=== PATIENT | female | born 1955 | race Hispanic/Latino ===

== ENCOUNTER 2021-12-03 22:51 | Inpatient (IN) | payer MEDICARE, MEDICAID ==
[2021-12-03] MEDS ORDERED: SODIUM CHLORIDE 0.9% 1000 ML 1,000 ML IV ONE (23:30)
[2021-12-03] MEDS ORDERED: NALOXONE 0.4 MG/1 ML INJ IV ONE (23:30)
--- NOTE | 2021-12-04 00:18 | XRay Report ---
Chest single view INDICATION: Dyspnea IMPRESSION: Patchy airspace disease within both lower lungs could represent pneumonia. The upper lung s are grossly clear. Signer Name: Dameon Pickens MD Signed: 12/04/2021 12:14 AM Workstation Name: [employer]
[2021-12-04 01:07] LABS: Basophils % (Auto) 0.1 % (0.0-1.8); Hematocrit 32.3 % (30.3-42.9); Hemoglobin 10.2 gm/dl (10.1-14.3); Lymphocytes # (Auto) 1.3 K/mm3 (1.2-5.4); Lymphocytes % (Auto) 23.3 % (13.4-35.0); Mean Corpuscular HGB Conc 32 % (30-34); Mean Corpuscular Volume 82 fl (79-97); Monocytes # (Auto) 0.7 K/mm3 (0.0-0.8); Monocytes % (Auto) 11.9 % (0.0-7.3); Platelet Count 157 K/mm3 (140-440); Red Blood Count 3.92 M/mm3 (3.65-5.03); Red Cell Distribution Width 15.4 % (13.2-15.2)
[2021-12-04 01:10] LABS: INR 0.92 (0.87-1.13)
[2021-12-04] MEDS ORDERED: cefTRIAXone/NS 1 GM/50 ML 1 GM/50 ML BAG IV ONE (01:15)
[2021-12-04 01:19] LABS: Alanine Aminotransferase 24 units/L (7-56); Albumin 3.9 g/dL (3.9-5); BUN/Creatinine Ratio 34; Blood Urea Nitrogen 37 mg/dL (7-17); Calcium 9.1 mg/dL (8.4-10.2); Hemolysis Index 33
[2021-12-04 02:45] LABS: Color,Urine Yellow (Yellow)
[2021-12-04 02:47] LABS: Hyaline Casts,Urine 7 /LPF; Mucus,Urine FEW /HPF
[2021-12-04 02:51] LABS: Amphetamine Screen,Urine Negative; Cannabinoid Screen,Urine Negative; Cocaine Screen,Urine Negative
[2021-12-04 03:06] LABS: Benzodiazepines Screen,Urine Positive; Methadone Screen,Urine Positive; Opiate Screen,Urine Positive
--- NOTE | 2021-12-04 04:14 | Emergency Department Report ---
ED General Adult HPI - General Chief complaint: Overdose Stated complaint: AMS PUI?: No Time Seen by Provider: 12/03/21 23:30 Source: patient, EMS Mode of arrival: Stretcher Limitations: No Limitations - History of Present Illness Initial comments: From detention. Staff stated that pt has been acting strange X 2 days. Today was found in bathroom with Benadryl pills around her. Stated that she took five but time unknown. Accucheck 149. -: days(s) Severity scale (0 -10): 0 Worsens with: none Associated Symptoms: denies: denies other symptoms, confusion, chest pain Treatments Prior to Arrival: none - Related Data Allergies Allergy/AdvReac Type Severity Reaction Status Date / Time No Known Allergies Allergy Unverified 12/03/21 23:30 ED Review of Systems ROS: Stated complaint: AMS Other details as noted in HPI Constitutional: denies: chills, fever Eyes: denies: eye pain, eye discharge, vision change ENT: denies: ear pain, throat pain Respiratory: denies: cough, shortness of breath, wheezing Cardiovascular: denies: chest pain, palpitations Endocrine: no symptoms reported Gastrointestinal: denies: abdominal pain, nausea, diarrhea Genitourinary: denies: urgency, dysuria, discharge Musculoskeletal: denies: back pain, joint swelling, arthralgia Skin: denies: rash, lesions Neurological: denies: headache, weakness, paresthesias Psychiatric: denies: anxiety, depression Hematological/Lymphatic: denies: easy bleeding, easy bruising ED Past Medical Hx - Past Medical History Previous Medical History?: Yes Hx Hypertension: No Hx Psychiatric Treatment: Yes (Schizophrenia, Bipolar) Hx COPD: Yes Additional medical history: Sustance Abuser - Surgical History Past Surgical History?: No - Social History Smoking Status: Unknown if ever smoked ED Physical Exam - General Limitations: No Limitations General appearance: in no apparent distress, other (drowsy sleepy slurred ) - Head Head exam: Present: atraumatic, normocephalic - Eye Eye exam: Present: normal appearance, PERRL - ENT ENT exam: Present: mucous membranes moist - Neck Neck exam: Present: normal inspection - Respiratory Respiratory exam: Present: normal lung sounds bilaterally. Absent: respiratory distress - Cardiovascular Cardiovascular Exam: Present: regular rate, normal rhythm. Absent: systolic murmur, diastolic murmur, rubs, gallop - GI/Abdominal GI/Abdominal exam: Present: soft, normal bowel sounds - Extremities Exam Extremities exam: Present: normal inspection - Back Exam Back exam: Present: normal inspection - Neurological Exam Neurological exam: Present: alert, oriented X3 - Expanded Neurological Exam Expanded Neurological exam: Present: innattentive Patient oriented to: Present: place Speech: Present: fluid speech Best Eye Response (Fish): (4) open spontaneously Best Motor Response (Fish): (6) obeys commands Best Verbal Response (Fish): (3) inappropriate words [place] Total: 13 - Expanded Psychiatric Exam Expanded Focused psych exam: Present: perseverating, loose associations - Skin Skin exam: Present: warm, dry, intact, normal color. Absent: rash ED Course Vital Signs 12/03/21 12/03/21 12/03/21 22:51 23:30 23:35 Temperature 98 F 98.2 F Pulse Rate 94 H 84 81 Respiratory 18 20 21 Rate Blood Pressure 152/61 Blood Pressure 134/49 [Left] O2 Sat by Pulse 96 96 93 Oximetry 12/03/21 12/04/21 12/04/21 23:46 00:00 00:16 Temperature Pulse Rate 83 79 Respiratory 20 21 Rate Blood Pressure 132/48 132/48 132/48 Blood Pressure [Left] O2 Sat by Pulse 92 96 93 Oximetry 12/04/21 12/04/21 12/04/21 00:30 00:46 01:00 Temperature Pulse Rate 82 80 86 Respiratory 19 23 16 Rate Blood Pressure 117/33 117/33 117/33 Blood Pressure [Left] O2 Sat by Pulse 93 Oximetry 12/04/21 12/04/21 12/04/21 01:16 01:30 01:46 Temperature Pulse Rate 79 80 78 Respiratory 19 21 20 Rate Blood Pressure 142/54 142/54 146/60 Blood Pressure [Left] O2 Sat by Pulse Oximetry 12/04/21 12/04/21 12/04/21 02:00 02:16 02:30 Temperature Pulse Rate 78 79 80 Respiratory 21 13 12 Rate Blood Pressure 142/54 142/54 146/60 Blood Pressure [Left] O2 Sat by Pulse Oximetry 12/04/21 12/04/21 12/04/21 02:58 03:00 03:16 Temperature Pulse Rate 89 76 Respiratory 18 15 Rate Blood Pressure 142/54 195/57 195/57 Blood Pressure [Left] O2 Sat by Pulse 92 96 97 Oximetry 12/04/21 12/04/21 12/04/21 03:30 03:46 04:00 Temperature Pulse Rate 77 Respiratory 19 Rate Blood Pressure 146/60 146/60 111/42 Blood Pressure [Left] O2 Sat by Pulse 98 94 Oximetry ED Medical Decision Making - Lab Data Result diagrams: 12/04/21 00:17 12/04/21 00:17 - Radiology Data Radiology results: report reviewed, image reviewed - Medical Decision Making work up showed methadone opioids and benzo, pt was observed back to her [facility] , Critical care attestation.: If time is entered above; I have spent that time in minutes in the direct care of this critically ill patient, excluding procedure time. ED Disposition Clinical Impression: Altered mental status, Methadone use, UTI (urinary tract infection) Disposition: 01 HOME / SELF CARE / HOMELESS Is pt being admited?: No Does the pt Need Aspirin: No Condition: Stable Instructions: Opioid Use Disorder, Warning Signs of Opioid Misuse Referrals: VALORIE VANEGAS MD [Primary Care Provider] - 3-5 Days
--- NOTE | 2021-12-04 04:20 | Cat Scan Report ---
CT head without contrast INDICATION : Altered mental status TECHNIQUE: Axial imaging performed from the skull apex through the skull base without the use of con trast. All CT examinations performed at this facility utilize dose modulation, iterative reconstruct ion or weight-based dosing, when appropriate, to reduce radiation dose to as low as reasonably achiev able. Exam was limited secondary to motion artifact. Several repeat images performed COMPARISON: None FINDINGS: No acute intracranial hemorrhage or parenchymal abnormality. Tiny lacunar infarct noted wi thin the left basal ganglia. Ventricles are normal in size and appear symmetric. Soft tissues inclu ding the orbits appear normal. No acute osseous abnormality. Sinuses and mastoid air cells are cl ear. IMPRESSION: Limited exam. No acute abnormality within the limits of the exam. Signer Name: Dameon Pickens MD Signed: 12/04/2021 4:15 AM Workstation Name: [email or web address]
[2021-12-04] MEDS ORDERED: MORPHINE 4 MG/1 ML INJ IV PRN (07:57)
[2021-12-04] MEDS ORDERED: ONDANSETRON 4 MG/2 ML INJ IV PRN (07:57)
[2021-12-04] MEDS ORDERED: ACETAMINOPHEN 325 MG TAB PO PRN (07:57)
[2021-12-04] MEDS ORDERED: oxyCODONE /ACETAMINOPHEN 5-325MG TAB PO PRN (07:57)
--- NOTE | 2021-12-04 08:14 | Event Note ---
Date: 12/04/21 Patient is a 66-year-old female with toxic metabolic encephalopathy, likely secondary to methadone overdose as well as pyuria/possible UTI. CT scan brain negative for acute findings. Patient disorganize confused, and is not able to care for self independently. She is lethargic. She is protecting her airway. She is not hypoxic. Recommend admission for observation and supportive care for toxic metabolic encephalopathy. Nursing team called [facility] Control [facility], recommendations are as follows EKG is interpreted at 06: 20 1 AM. Sinus rhythm, rate of 68 bpm. Normal axis, normal P wave axis, QTC 4 9 4 ms, with high left ventricular voltage/LVH. Poor R wave progression. Abnormal EKG. Not a STEMI. Hospital physician, Dr. Radha Das to admit Chest x-ray suggestive of possible pneumonia versus aspiration. Ceftriaxone has been ordered , her recommendations were systematic and supportive care because she's been here for over 6 hours and vitals and EKG is normal Original Note: called poison control @[facility] spoke with Loretta Gutierrez CT head without contrast INDICATION : Altered mental status TECHNIQUE: Axial imaging performed from the skull apex through the skull base without the use of contrast. All CT examinations performed at this facility utilize dose modulation, iterative reconstruction or weight-based dosing, when appropriate, to reduce radiation dose to as low as reasonably achievable. Exam was limited secondary to motion artifact. Several repeat images performed COMPARISON: None FINDINGS: No acute intracranial hemorrhage or parenchymal abnormality. Tiny lacunar infarct noted within the left basal ganglia. Ventricles are normal in size and appear symmetric. Soft tissues including the orbits appear normal. No acute osseous abnormality. Sinuses and mastoid air cells are clear. IMPRESSION: Limited exam. No acute abnormality within the limits of the exam. Signer Name: Dameon Pickens MD Signed: 12/04/2021 3:15 AM Workstation Name: [employer] Chest single view INDICATION: Dyspnea IMPRESSION: Patchy airspace disease within both lower lungs could represent pneumonia. The upper lungs are grossly clear. Signer Name: Dameon Pickens MD Signed: 12/03/2021 11:14 PM Workstation Name: [employer] Vital Signs 12/03/21 12/03/21 12/03/21 22:51 23:30 23:35 Temperature 98 F 98.2 F Pulse Rate 94 H 84 81 Respiratory 18 20 21 Rate Blood Pressure 152/61 Blood Pressure 134/49 [Left] O2 Sat by Pulse 96 96 93 Oximetry 12/03/21 12/04/21 12/04/21 23:46 00:00 00:16 Temperature Pulse Rate 83 79 Respiratory 20 21 Rate Blood Pressure 132/48 132/48 132/48 Blood Pressure [Left] O2 Sat by Pulse 92 96 93 Oximetry 12/04/21 12/04/21 12/04/21 00:30 00:46 01:00 Temperature Pulse Rate 82 80 86 Respiratory 19 23 16 Rate Blood Pressure 117/33 117/33 117/33 Blood Pressure [Left] O2 Sat by Pulse 93 Oximetry 12/04/21 12/04/21 12/04/21 01:16 01:30 01:46 Temperature Pulse Rate 79 80 78 Respiratory 19 21 20 Rate Blood Pressure 142/54 142/54 146/60 Blood Pressure [Left] O2 Sat by Pulse Oximetry 12/04/21 12/04/21 12/04/21 02:00 02:16 02:30 Temperature Pulse Rate 78 79 80 Respiratory 21 13 12 Rate Blood Pressure 142/54 142/54 146/60 Blood Pressure [Left] O2 Sat by Pulse Oximetry 12/04/21 12/04/21 12/04/21 02:58 03:00 03:16 Temperature Pulse Rate 89 76 Respiratory 18 15 Rate Blood Pressure 142/54 195/57 195/57 Blood Pressure [Left] O2 Sat by Pulse 92 96 97 Oximetry 12/04/21 12/04/21 12/04/21 03:30 03:46 04:00 Temperature Pulse Rate 77 Respiratory 19 Rate Blood Pressure 146/60 146/60 111/42 Blood Pressure [Left] O2 Sat by Pulse 98 94 Oximetry Lab Results 12/04/21 12/04/21 12/04/21 Range/Units 00:17 00:17 00:17 WBC 5.6 (4.5-11.0) K/mm3 RBC 3.92 (3.65-5.03) M/mm3 Hgb 10.2 (10.1-14.3) gm/dl Hct 32.3 (30.3-42.9) % MCV 82 (79-97) fl MCH 26 L (28-32) pg MCHC 32 (30-34) % RDW 15.4 H (13.2-15.2) % Plt Count 157 (140-440) K/mm3 Lymph % (Auto) 23.3 (13.4-35.0) % [place] % (Auto) 11.9 H (0.0-7.3) % Eos % (Auto) 0.0 (0.0-4.3) % Baso % (Auto) 0.1 (0.0-1.8) % Lymph # (Auto) 1.3 (1.2-5.4) K/mm3 [place] # (Auto) 0.7 (0.0-0.8) K/mm3 Eos # (Auto) 0.0 (0.0-0.4) K/mm3 Baso # (Auto) 0.0 (0.0-0.1) K/mm3 Seg Neutrophils % 64.7 (40.0-70.0) % Seg Neutrophils # 3.6 (1.8-7.7) K/mm3 PT 13.4 (12.2-14.9) Sec. INR 0.92 (0.87-1.13) Sodium 141 (137-145) mmol/L Potassium 4.5 (3.6-5.0) mmol/L Chloride 104.6 (98-107) mmol/L Carbon Dioxide 23 (22-30) mmol/L Anion Gap 18 mmol/L BUN 37 H (7-17) mg/dL Creatinine 1.1 (0.6-1.2) mg/dL Estimated GFR 49 ml/min BUN/Creatinine Ratio 34 % Glucose 93 (65-100) mg/dL Lactic Acid (0.7-2.0) mmol/L Calcium 9.1 (8.4-10.2) mg/dL Total Bilirubin 0.30 (0.1-1.2) mg/dL AST 50 H (5-40) units/L ALT 24 (7-56) units/L Alkaline Phosphatase 100 (35-129) units/L Total Creatine Kinase 959 H (30-135) units/L Troponin T < 0.010 (0.00-0.029) ng/mL Total Protein 7.2 (6.3-8.2) g/dL Albumin 3.9 (3.9-5) g/dL Albumin/Globulin Ratio 1.2 % Urine Color (Yellow) Urine Turbidity (Clear) Specific [place] (Man) (1.003-1.030) Ur Protein (Man) (Negative) mg/dL Ur Ketones (Man) (Negative) Ur Nitrite (Man) (Negative) Urine Bilirubin (Man) (Negative) Leukocyte Esterase (Man) (Negative) Urine WBC (Auto) (0.0-6.0) /HPF Urine RBC (Auto) (0.0-6.0) /HPF U Epithel Cells (Auto) (0-13.0) /HPF Urine RBC (Manual) (Negative) Hyaline Casts /LPF Urine Mucus /HPF Salicylates (2.8-20.0) mg/dL Urine Opiates Screen Urine Methadone Screen Acetaminophen (10.0-30.0) ug/mL Ur Barbiturates Screen Ur Phencyclidine Scrn Ur Amphetamines Screen U Benzodiazepines Scrn Urine Cocaine Screen U Marijuana (THC) Screen Drugs of Abuse Note Plasma/Serum Alcohol (0-0.07) % 12/04/21 12/04/21 12/04/21 Range/Units 00:17 00:17 00:17 WBC (4.5-11.0) K/mm3 RBC (3.65-5.03) M/mm3 Hgb (10.1-14.3) gm/dl Hct (30.3-42.9) % MCV (79-97) fl MCH (28-32) pg MCHC (30-34) % RDW (13.2-15.2) % Plt Count (140-440) K/mm3 Lymph % (Auto) (13.4-35.0) % [place] % (Auto) (0.0-7.3) % Eos % (Auto) (0.0-4.3) % Baso % (Auto) (0.0-1.8) % Lymph # (Auto) (1.2-5.4) K/mm3 [place] # (Auto) (0.0-0.8) K/mm3 Eos # (Auto) (0.0-0.4) K/mm3 Baso # (Auto) (0.0-0.1) K/mm3 Seg Neutrophils % (40.0-70.0) % Seg Neutrophils # (1.8-7.7) K/mm3 PT (12.2-14.9) Sec. INR (0.87-1.13) Sodium (137-145) mmol/L Potassium (3.6-5.0) mmol/L Chloride (98-107) mmol/L Carbon Dioxide (22-30) mmol/L Anion Gap mmol/L BUN (7-17) mg/dL Creatinine (0.6-1.2) mg/dL Estimated GFR ml/min BUN/Creatinine Ratio % Glucose (65-100) mg/dL Lactic Acid (0.7-2.0) mmol/L Calcium (8.4-10.2) mg/dL Total Bilirubin (0.1-1.2) mg/dL AST (5-40) units/L ALT (7-56) units/L Alkaline Phosphatase (35-129) units/L Total Creatine Kinase (30-135) units/L Troponin T (0.00-0.029) ng/mL Total Protein (6.3-8.2) g/dL Albumin (3.9-5) g/dL Albumin/Globulin Ratio % Urine Color (Yellow) Urine Turbidity (Clear) Specific [place] (Man) (1.003-1.030) Ur Protein (Man) (Negative) mg/dL Ur Ketones (Man) (Negative) Ur Nitrite (Man) (Negative) Urine Bilirubin (Man) (Negative) Leukocyte Esterase (Man) (Negative) Urine WBC (Auto) (0.0-6.0) /HPF Urine RBC (Auto) (0.0-6.0) /HPF U Epithel Cells (Auto) (0-13.0) /HPF Urine RBC (Manual) (Negative) Hyaline Casts /LPF Urine Mucus /HPF Salicylates < 0.3 L (2.8-20.0) mg/dL Urine Opiates Screen Urine Methadone Screen Acetaminophen 5.0 L (10.0-30.0) ug/mL Ur Barbiturates Screen Ur Phencyclidine Scrn Ur Amphetamines Screen U Benzodiazepines Scrn Urine Cocaine Screen U Marijuana (THC) Screen Drugs of Abuse Note Plasma/Serum Alcohol < 0.01 (0-0.07) % 12/04/21 12/04/21 12/04/21 Range/Units 02:07 02:28 02:28 WBC (4.5-11.0) K/mm3 RBC (3.65-5.03) M/mm3 Hgb (10.1-14.3) gm/dl Hct (30.3-42.9) % MCV (79-97) fl MCH (28-32) pg MCHC (30-34) % RDW (13.2-15.2) % Plt Count (140-440) K/mm3 Lymph % (Auto) (13.4-35.0) % [place] % (Auto) (0.0-7.3) % Eos % (Auto) (0.0-4.3) % Baso % (Auto) (0.0-1.8) % Lymph # (Auto) (1.2-5.4) K/mm3 [place] # (Auto) (0.0-0.8) K/mm3 Eos # (Auto) (0.0-0.4) K/mm3 Baso # (Auto) (0.0-0.1) K/mm3 Seg Neutrophils % (40.0-70.0) % Seg Neutrophils # (1.8-7.7) K/mm3 PT (12.2-14.9) Sec. INR (0.87-1.13) Sodium (137-145) mmol/L Potassium (3.6-5.0) mmol/L Chloride (98-107) mmol/L Carbon Dioxide (22-30) mmol/L Anion Gap mmol/L BUN (7-17) mg/dL Creatinine (0.6-1.2) mg/dL Estimated GFR ml/min BUN/Creatinine Ratio % Glucose (65-100) mg/dL Lactic Acid 0.90 (0.7-2.0) mmol/L Calcium (8.4-10.2) mg/dL Total Bilirubin (0.1-1.2) mg/dL AST (5-40) units/L ALT (7-56) units/L Alkaline Phosphatase (35-129) units/L Total Creatine Kinase (30-135) units/L Troponin T (0.00-0.029) ng/mL Total Protein (6.3-8.2) g/dL Albumin (3.9-5) g/dL Albumin/Globulin Ratio % Urine Color Yellow (Yellow) Urine Turbidity Clear (Clear) Specific [place] (Man) 1.025 (1.003-1.030) Ur Protein (Man) <30 mg dl (Negative) mg/dL Ur Ketones (Man) Negative (Negative) Ur Nitrite (Man) Negative (Negative) Urine Bilirubin (Man) Negative (Negative) Leukocyte Esterase (Man) Moderate (Negative) Urine WBC (Auto) 33.0 H (0.0-6.0) /HPF Urine RBC (Auto) 17.0 (0.0-6.0) /HPF U Epithel Cells (Auto) 5.0 (0-13.0) /HPF Urine RBC (Manual) 5+ (Negative) Hyaline Casts 7 /LPF Urine Mucus Few /HPF Salicylates (2.8-20.0) mg/dL Urine Opiates Screen Positive Urine Methadone Screen Positive Acetaminophen (10.0-30.0) ug/mL Ur Barbiturates Screen Negative Ur Phencyclidine Scrn Negative Ur Amphetamines Screen Negative U Benzodiazepines Scrn Positive Urine Cocaine Screen Negative U Marijuana (THC) Screen Negative Drugs of Abuse Note Disclamer Plasma/Serum Alcohol (0-0.07) %
[2021-12-04] MEDS ORDERED: DEXTROSE 5% IN WATER 1,000 ML IV SCH (09:00)
--- NOTE | 2021-12-04 12:43 | Consultation ---
History of Present Illness - Reason for Consult Consult date: 12/04/21 Reason for consult: AMS - History of Present Psychiatric Illness The patient was seen today. She as a history of COPD with 3 L 02, anxiety and depression. She was brought from a local [facility] after being found in bathroom with benadryl pills beside her. During my evaluation with the patient she is a/o x 3. She is calm and cooperative. The patient is polite. The patient denies attempting to do any harm to herself. She says "ok, that's why they have psych seeing me. But I'm not suicidal." She also denies ever having an attempt. She endorses feeling down at times. She says she lost her son to an overdose in April. The patient says "I just do one day at a time." She denies any halluc inations. 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 The patient says she takes effexor, klonopin and subutex. She says she has a history of depression and anxiety. PAST PSYCHIATRIC HISTORY: Diagnoses: Depression, anxiety Suicide attempts or Self-harm behavior: Denies Prior psychiatric hospitalizations: Denies Substance Abuse history: Cocaine, Meth, THC, Oxycodonoe Previous psychiatric medications tried: Zoloft Outpatient treatment: Yes PAST MEDICAL HISTORY: COPD Family Psychiatric History: None reported or documented SOCIAL HISTORY Marital Status: Living Arrangements: with mother Employment Status: employed Access to guns/weapons: Denies Education: History of Abuse:Denies Legal History: Denies REVIEW OF SYSTEMS Constitutional: Negative for weight loss ENT: Negative for stridor Respiratory: Negative for cough or hemoptysis All other systems reviewed and are negative MENTAL STATUS EXAMINATION General Appearance and Behavior: Age appropriate, wearing appropriate clothes, cooperative, polite with questioning, good eye contact Cooperation: cooperative Psychomotor Behavior: Psychomotor normal Mood: okay Affect and affective range: congruent with stated affect Thought Process: Goal directed Thought Content: Reality oriented Speech: Normal volume, Regular rate and rhythm Suicidal Ideation: Denies Homicidal Ideation: Denies Hallucination: Denies Delusions: Denies Impulse Control: Limited Insight and Judgment: Limited Memory: Intact Attention: attentive Orientation: Alert and oriented Diagnoses: Polysubstance Dependence Treatment Plan Continue previously prescribed meds by outpatient provider Sitter: defer to primary Medical: Per primary Disposition: Do not recommend acute psychiatric inpatient treatment He is to follow up with outpatient psych in 7 to 14 days upon discharge The mixed crop and livestock farmer to provide the patient with all necessary outpatient resources, and therapy referrals Will sign off. Thanks Case staffed with Dr. Garcia Medications and Allergies Allergies Allergy/AdvReac Type Severity Reaction Status Date / Time No Known Allergies Allergy Verified 12/04/21 08:18 Active Meds: Active Medications Acetaminophen (Acetaminophen 325 Mg Tab) 650 mg PO Q4H PRN PRN Reason: Pain MILD(1-3)/Fever >100.5/HAQ Enoxaparin Sodium (Enoxaparin 40 Mg/0.4 Ml Inj) 40 mg SUB-Q QDAY [place]; Protocol Ceftriaxone Sodium (Rocephin/Ns 1 Gm/50 Ml) 1 gm in 50 mls @ 100 mls/hr IV Q24H [place]; Protocol Stop: 12/07/21 07:59 Dextrose (D5w) 1,000 mls @ 75 mls/hr IV DIRECT [place] Morphine Sulfate (Morphine 4 Mg/1 Ml Inj) 2 mg IV Q4H PRN PRN Reason: Pain , Severe (7-10) Ondansetron HCl (Ondansetron 4 Mg/2 Ml Inj) 4 mg IV Q8H PRN PRN Reason: Nausea And Vomiting Oxycodone/Acetaminophen (Oxycodone /Acetaminophen 5-325mg Tab) 1 tab PO Q6H PRN PRN Reason: Pain, Moderate (4-6) Sodium Chloride (Sodium Chloride 0.9% 10 Ml Flush Syringe) 10 ml IV BID [place] Sodium Chloride (Sodium Chloride 0.9% 10 Ml Flush Syringe) 10 ml IV PRN PRN PRN Reason: LINE FLUSH Mental Status Exam - Vital signs Last Vital Signs Temp 98.2 F 12/03/21 23:30 Pulse 71 12/04/21 12:00 Resp 16 12/04/21 12:00 BP 111/42 12/04/21 05:46 Pulse Ox 95 12/04/21 12:00 Results Result Diagrams: 12/04/21 00:17 12/04/21 00:17 Abnormal lab results 12/04/21 12/04/21 12/04/21 Range/Units 00:17 00:17 00:17 MCH 26 L (28-32) pg RDW 15.4 H (13.2-15.2) % [place] % (Auto) 11.9 H (0.0-7.3) % BUN 37 H (7-17) mg/dL AST 50 H (5-40) units/L Total Creatine Kinase 959 H (30-135) units/L Urine WBC (Auto) (0.0-6.0) /HPF Salicylates < 0.3 L (2.8-20.0) mg/dL Acetaminophen (10.0-30.0) ug/mL 12/04/21 12/04/21 Range/Units 00:17 02:28 MCH (28-32) pg RDW (13.2-15.2) % [place] % (Auto) (0.0-7.3) % BUN (7-17) mg/dL AST (5-40) units/L Total Creatine Kinase (30-135) units/L Urine WBC (Auto) 33.0 H (0.0-6.0) /HPF Salicylates (2.8-20.0) mg/dL Acetaminophen 5.0 L (10.0-30.0) ug/mL All other labs normal.
--- NOTE | 2021-12-04 13:47 | History and Physical Report ---
History of Present Illness Date of examination: 12/04/21 Date of admission: 12/04/21 07:57 Chief complaint: Possible methadone overdose History of present illness: Patient 66-year-old female past medical history of COPD requiring 3 L supplemental oxygen, anxiety, depression, schizophrenia, possible bipolar disorder, and polysubstance dependence who presented to the ED via EMS after presenting altered and confused after being found in the bathroom of her prison surrounded by Benadryl tablets. According to the chart, the patient has been "acting strange" for the previous 2 days prior to presentation. On arrival to the ED, the patient was found to be hemodynamically stable and protecting her airway but disorganized, confused, and unable to provide significant history. Patient's labs were unremarkable, except for positive urinalysis. Patient's urine drug screen was also positive for opiates, methadone, and benzos. Patient was placed under 1013 by the ED physician. Patient is being admitted for management of acute toxic encephalopathy in the setting of acute toxic metabolic encephalopathy. Past History Past Medical History: COPD (anxiety, depression, schizophrenia, possible bipolar disorder, and polysubstance dependence), other Past Surgical History: No surgical history Social history: prescription drug abuse, full code, other (Lives in prison) Family history: no significant family history Medications and Allergies Allergies Allergy/AdvReac Type Severity Reaction Status Date / Time No Known Allergies Allergy Verified 12/04/21 08:18 Active Meds: Active Medications Acetaminophen (Acetaminophen 325 Mg Tab) 650 mg PO Q4H PRN PRN Reason: Pain MILD(1-3)/Fever >100.5/HAQ Enoxaparin Sodium (Enoxaparin 40 Mg/0.4 Ml Inj) 40 mg SUB-Q QDAY [place]; Protocol Ceftriaxone Sodium (Rocephin/Ns 1 Gm/50 Ml) 1 gm in 50 mls @ 100 mls/hr IV Q24H [place]; Protocol Stop: 12/07/21 07:59 Dextrose (D5w) 1,000 mls @ 75 mls/hr IV DIRECT [place] Morphine Sulfate (Morphine 4 Mg/1 Ml Inj) 2 mg IV Q4H PRN PRN Reason: Pain , Severe (7-10) Ondansetron HCl (Ondansetron 4 Mg/2 Ml Inj) 4 mg IV Q8H PRN PRN Reason: Nausea And Vomiting Oxycodone/Acetaminophen (Oxycodone /Acetaminophen 5-325mg Tab) 1 tab PO Q6H PRN PRN Reason: Pain, Moderate (4-6) Sodium Chloride (Sodium Chloride 0.9% 10 Ml Flush Syringe) 10 ml IV BID [place] Sodium Chloride (Sodium Chloride 0.9% 10 Ml Flush Syringe) 10 ml IV PRN PRN PRN Reason: LINE FLUSH Review of Systems ROS unobtainable: due to mental status Exam - Constitutional Vitals: Temp Pulse Resp BP Pulse Ox 98.2 F 71 16 111/42 95 12/03/21 23:30 12/04/21 12:00 12/04/21 12:00 12/04/21 05:46 12/04/21 12:00 General appearance: Present: no acute distress, well-nourished - EENT Eyes: Present: PERRL, EOM intact ENT: hearing intact, clear oral mucosa, dentition normal - Neck Neck: Present: supple, normal ROM - Respiratory Respiratory effort: normal Respiratory: bilateral: diminished - Cardiovascular Rhythm: regular Heart Sounds: Present: S1 & S2 - Extremities Extremities: no ischemia, pulses intact, pulses symmetrical, No edema, normal temperature, normal color Peripheral Pulses: within normal limits - Abdominal General gastrointestinal: Present: soft, non-tender, non-distended, normal bowel sounds Female genitourinary: Present: deferred - Rectal Rectal Exam: deferred - Integumentary Integumentary: Present: clear, warm, dry - Musculoskeletal Musculoskeletal: other (Unable to fully assess given ental status) - Psychiatric Psychiatric: depressed - Neurologic Neurologic: CNII-XII intact, moves all extremities - Allied Health Allied health notes reviewed: nursing HEART Score - HEART Score Troponin: Troponin T < 0.010 ng/mL (0.00-0.029) 12/04/21 00:17 Results - Labs CBC & Chem 7: 12/04/21 00:17 12/04/21 00:17 Labs: Laboratory Last Values WBC 5.6 K/mm3 (4.5-11.0) 12/04/21 00:17 RBC 3.92 M/mm3 (3.65-5.03) 12/04/21 00:17 Hgb 10.2 gm/dl (10.1-14.3) 12/04/21 00:17 Hct 32.3 % (30.3-42.9) 12/04/21 00:17 MCV 82 fl (79-97) 12/04/21 00:17 MCH 26 pg (28-32) L 12/04/21 00:17 MCHC 32 % (30-34) 12/04/21 00:17 RDW 15.4 % (13.2-15.2) H 12/04/21 00:17 Plt Count 157 K/mm3 (140-440) 12/04/21 00:17 Lymph % (Auto) 23.3 % (13.4-35.0) 12/04/21 00:17 Wright % (Auto) 11.9 % (0.0-7.3) H 12/04/21 00:17 Eos % (Auto) 0.0 % (0.0-4.3) 12/04/21 00:17 Baso % (Auto) 0.1 % (0.0-1.8) 12/04/21 00:17 Lymph # (Auto) 1.3 K/mm3 (1.2-5.4) 12/04/21 00:17 Wright # (Auto) 0.7 K/mm3 (0.0-0.8) 12/04/21 00:17 Eos # (Auto) 0.0 K/mm3 (0.0-0.4) 12/04/21 00:17 Baso # (Auto) 0.0 K/mm3 (0.0-0.1) 12/04/21 00:17 Seg Neutrophils % 64.7 % (40.0-70.0) 12/04/21 00:17 Seg Neutrophils # 3.6 K/mm3 (1.8-7.7) 12/04/21 00:17 PT 13.4 Sec. (12.2-14.9) 12/04/21 00:17 INR 0.92 (0.87-1.13) 12/04/21 00:17 Sodium 141 mmol/L (137-145) 12/04/21 00:17 Potassium 4.5 mmol/L (3.6-5.0) 12/04/21 00:17 Chloride 104.6 mmol/L (98-107) 12/04/21 00:17 Carbon Dioxide 23 mmol/L (22-30) 12/04/21 00:17 Anion Gap 18 mmol/L 12/04/21 00:17 BUN 37 mg/dL (7-17) H 12/04/21 00:17 Creatinine 1.1 mg/dL (0.6-1.2) 12/04/21 00:17 Estimated GFR 49 ml/min 12/04/21 00:17 BUN/Creatinine Ratio 34 % 12/04/21 00:17 Glucose 93 mg/dL (65-100) 12/04/21 00:17 Lactic Acid 0.90 mmol/L (0.7-2.0) 12/04/21 02:07 Calcium 9.1 mg/dL (8.4-10.2) 12/04/21 00:17 Total Bilirubin 0.30 mg/dL (0.1-1.2) 12/04/21 00:17 AST 50 units/L (5-40) H 12/04/21 00:17 ALT 24 units/L (7-56) 12/04/21 00:17 Alkaline Phosphatase 100 units/L (35-129) 12/04/21 00:17 Total Creatine Kinase 959 units/L (30-135) H 12/04/21 00:17 Troponin T < 0.010 ng/mL (0.00-0.029) 12/04/21 00:17 Total Protein 7.2 g/dL (6.3-8.2) 12/04/21 00:17 Albumin 3.9 g/dL (3.9-5) 12/04/21 00:17 Albumin/Globulin Ratio 1.2 % 12/04/21 00:17 Urine Color Yellow (Yellow) 12/04/21 02:28 Urine Turbidity Clear (Clear) 12/04/21 02:28 Specific [place] (Man) 1.025 (1.003-1.030) 12/04/21 02:28 Ur Protein (Man) <30 mg dl mg/dL (Negative) 12/04/21 02:28 Ur Ketones (Man) Negative (Negative) 12/04/21 02:28 Ur Nitrite (Man) Negative (Negative) 12/04/21 02:28 Urine Bilirubin (Man) Negative (Negative) 12/04/21 02:28 Leukocyte Esterase (Man) Moderate (Negative) 12/04/21 02:28 Urine WBC (Auto) 33.0 /HPF (0.0-6.0) H 12/04/21 02:28 Urine RBC (Auto) 17.0 /HPF (0.0-6.0) 12/04/21 02:28 U Epithel Cells (Auto) 5.0 /HPF (0-13.0) 12/04/21 02:28 Urine RBC (Manual) 5+ (Negative) 12/04/21 02:28 Hyaline Casts 7 /LPF 12/04/21 02:28 Urine Mucus Few /HPF 12/04/21 02:28 Salicylates < 0.3 mg/dL (2.8-20.0) L 12/04/21 00:17 Urine Opiates Screen Positive 12/04/21 02:28 Urine Methadone Screen Positive 12/04/21 02:28 Acetaminophen 5.0 ug/mL (10.0-30.0) L 12/04/21 00:17 Ur Barbiturates Screen Negative 12/04/21 02:28 Ur Phencyclidine Scrn Negative 12/04/21 02:28 Ur Amphetamines Screen Negative 12/04/21 02:28 U Benzodiazepines Scrn Positive 12/04/21 02:28 Urine Cocaine Screen Negative 12/04/21 02:28 U Marijuana (THC) Screen Negative 12/04/21 02:28 Drugs of Abuse Note Disclamer 12/04/21 02:28 Plasma/Serum Alcohol < 0.01 % (0-0.07) 12/04/21 00:17 Microbiology: Microbiology 12/04/21 02:07 Peripheral/Venous Blood Culture - Preliminary Culture in Progress 12/04/21 02:07 Peripheral/Venous Blood Culture - Preliminary Culture in Progress Assessment and Plan Assessment and plan: Patient 66-year-old female past medical history of COPD requiring 3 L supplemental oxygen, anxiety, depression, schizophrenia, possible bipolar disorder, and polysubstance dependence who presented to the ED via EMS after p resenting altered and confused after being found in the bathroom of her prison surrounded by Benadryl tablets. Patient's urine drug screen was also positive for opiates, methadone, and benzos. Patient was placed under 1013 by the ED physician. Patient is being admitted for management of acute toxic encephalopathy in the setting of acute toxic metabolic encephalopathy. #Acute toxic metabolic encephalopathy Likely secondary to self ministration of opiates, methadone, and benzos as detected in the patient's UDS Continue to monitor as substances are metabolized Unremarkable CT head noncontrast #Possible aspiration pneumonitis Patient has remained hemodynamically stable and afebrile Not currently requiring oxygen supplementation. Continue to monitor. Low threshold for broadening antibiotics if patient becomes hemodynamically stable. #COPD #History of chronic hypoxic respiratory failure Patient currently saturating 94% on room air Continue DuoNebs every 6 hours and albuterol nebs every 4 hours as needed #Concern for suicidal ideation/attempt Psychiatry consulted; appreciate recs. Patient not a candidate for inpatient psychiatric management. #Acute cystitis without hematuria Urinalysis revealing moderate leukocyte esterase and WBC 22 Continue Rocephin 1 g every 24. Can be transitioned to oral antibiotics tomorrow. #Polysubstance dependence -Patient engages in the following substances: UDS remarkable for opiates, methadone, and benzos -Counseled patient about the importance of cessation of substance abuse. Offered resources to help with quitting. Patient expresses understanding. -Time: +15 mins #Advanced care planning -Disease education conducted, care plan discussed, diagnoses discussed, prognosis discussed, and patient acknowledges understanding with care plan -Time: +30 min Advance Directives: No VTE prophylaxis?: Chemical Plan of care discussed with patient/family: Yes
[2021-12-04] MEDS: cefTRIAXone/NS 1 GM/50 ML 1 GM/50 ML BAG IV SCH (15:15)
[2021-12-04] MEDS: ENOXAPARIN 40 MG/0.4 ML INJ SUB-Q SCH (15:16)
[2021-12-04] MEDS ORDERED: buprenorphine 2 MG TAB SUBL SL ONE (23:57)
[2021-12-05 05:09] VITALS: BP 128/63
[2021-12-05] MEDS: cefTRIAXone/NS 1 GM/50 ML 1 GM/50 ML BAG IV SCH (08:47)
[2021-12-05] MEDS: ENOXAPARIN 40 MG/0.4 ML INJ SUB-Q SCH (09:25)
[2021-12-05] MEDS ORDERED: KLONOPIN PO SCH (10:15)
[2021-12-05 10:36] LABS: BUN/Creatinine Ratio 29; Blood Urea Nitrogen 23 mg/dL (7-17); Calcium 8.7 mg/dL (8.4-10.2); Hemolysis Index 18
[2021-12-05 10:56] LABS: Basophils % (Auto) 0.3 % (0.0-1.8); Hematocrit 35.7 % (30.3-42.9); Hemoglobin 11.3 gm/dl (10.1-14.3); Lymphocytes # (Auto) 1.2 K/mm3 (1.2-5.4); Lymphocytes % (Auto) 27.4 % (13.4-35.0); Mean Corpuscular HGB Conc 32 % (30-34); Mean Corpuscular Volume 83 fl (79-97); Monocytes # (Auto) 0.5 K/mm3 (0.0-0.8); Monocytes % (Auto) 10.7 % (0.0-7.3); Platelet Count 164 K/mm3 (140-440); Red Cell Distribution Width 16.5 % (13.2-15.2)
[2021-12-05] MEDS ORDERED: LEVOTHYROXINE 75 MCG TAB PO SCH (11:00)
[2021-12-05] MEDS ORDERED: LEVOTHYROXINE 100 MCG TAB PO SCH (11:00)
--- NOTE | 2021-12-05 12:31 | Discharge Summary ---
Providers - Providers Date of Admission: 12/04/21 07:57 Date of discharge: 12/05/21 Attending physician: HARLEEN DODSON Primary care physician: VALORIE VANEGAS Hospitalization Condition: Stable Hospital course: Patient 66-year-old female past medical history of COPD requiring 3 L supplemental oxygen, anxiety, depression, schizophrenia, possible bipolar disorder, and polysubstance dependence who presented to the ED via EMS after presenting altered and confused after being found in the bathroom of her shelter surrounded by Benadryl tablets. Patient's urine drug screen was also positive for opiates, methadone, and benzos. Patient was placed under 1013 by the ED physician. Patient is being admitted for management of acute toxic encephalopathy in the setting of acute toxic metabolic encephalopathy. #Acute toxic metabolic encephalopathy Likely secondary to self ministration of opiates, methadone, and benzos as detected in the patient's UDS Continue to monitor as substances are metabolized Unremarkable CT head noncontrast #Possible aspiration pneumonitis Patient has remained hemodynamically stable and afebrile Not currently requiring oxygen supplementation. Continue to monitor. Low threshold for broadening antibiotics if patient becomes hemodynamically stable. #COPD #History of chronic hypoxic respiratory failure Patient currently saturating 94% on room air Continue DuoNebs every 6 hours and albuterol nebs every 4 hours as needed #Concern for suicidal ideation/attempt Psychiatry consulted; appreciate recs. Patient not a candidate for inpatient psychiatric management. #Acute cystitis without hematuria Urinalysis revealing moderate leukocyte esterase and WBC 22 Continue Rocephin 1 g every 24. Can be transitioned to oral antibiotics tomorrow. #Polysubstance dependence -Patient engages in the following substances: UDS remarkable for opiates, methadone, and benzos -Counseled patient about the importance of cessation of substance abuse. Offered resources to help with quitting. Patient expresses understanding. -Time: +15 mins Disposition: 30 STILL A PATIENT Time spent for discharge: 34 minutes Core Measure Documentation - Palliative Care Palliative Care/ Comfort Measures: Not Applicable - Core Measures Any of the following diagnoses?: none Exam - Constitutional Vitals: Temp Pulse Resp BP Pulse Ox 98.1 F 67 18 128/63 100 12/05/21 05:08 12/05/21 05:08 12/05/21 05:08 12/05/21 05:08 12/05/21 05:08 General appearance: Present: no acute distress, other (elderly WF) - EENT Eyes: Present: PERRL ENT: hearing intact, clear oral mucosa - Neck Neck: Present: supple, normal ROM - Respiratory Respiratory effort: normal Respiratory: bilateral: CTA - Cardiovascular Heart Sounds: Present: S1 & S2. Absent: rub, click - Extremities Extremities: pulses symmetrical, No edema Peripheral Pulses: within normal limits - Abdominal General gastrointestinal: Present: soft, non-tender, non-distended, normal bowel sounds Female genitourinary: Present: deferred - Integumentary Integumentary: Present: clear, warm, dry - Musculoskeletal Musculoskeletal: gait normal, strength equal bilaterally - Psychiatric Psychiatric: appropriate mood/affect, intact judgment & insight - Neurologic Neurologic: CNII-XII intact, moves all extremities Plan Activity: advance as tolerated Weight Bearing Status: Weight Bear as Tolerated Diet: low fat, low salt Additional Instructions: f/u with your psychiatry in one week. Resume home meds and take them on regular basis Follow up with: VALORIE VANEGAS MD [Primary Care Provider] - 3-5 Days
--- NOTE | 2021-12-05 13:11 | Electrocardiograph Report ---
[facility] Test Date: 2021-12-04 Test Time: 06:21:26 Pat Name: OFELIA GONZALEZ Department: Room: A367 Gender: F [employer]: BHARAT : 1955 Requested By: ABHAY ABDULLAHI Order Number: [id number] Reading MD: Gordon Alvarez Measurements Intervals [place] Rate: 68 P: 42 DE: 119 QRS: 64 QRSD: 91 T: 66 QT: 462 QTc: 494 Interpretive Statements Sinus rhythm No previous ECG available for comparison Electronically Signed On 12-05-2021 13:11:15 EDT by Gordon Alvarez
[2021-12-05] MEDS ORDERED: SUBUTEX 8 MG PO SCH (14:00)
[2021-12-05] MEDS ORDERED: buprenorphine 2 MG TAB SUBL SL SCH (14:00)
[2021-12-05] MEDS ORDERED: SYNTHROID 175 MCG PO SCH (22:00)
== END 2021-12-05 16:04 | disposition home or self-care (01) | DRG 917 ==
LOC: ED 22:51 → 3A 12-04 07:57
PROVIDERS: ADMIT Student in an Organized Health Care Education/Training Program; ATTEND Internal Medicine
DX: T40.2X2A Poisoning by other opioids, intentional self-harm, initial encounter (principal); G92.8 Other toxic encephalopathy; J69.0 Pneumonitis due to inhalation of food and vomit; N30.00 Acute cystitis without hematuria; F11.20 Opioid dependence, uncomplicated; F13.20 Sedative, hypnotic or anxiolytic dependence, uncomplicated; F20.9 Schizophrenia, unspecified; F31.9 Bipolar disorder, unspecified; J44.9 Chronic obstructive pulmonary disease, unspecified; F41.9 Anxiety disorder, unspecified; Y92.89 Other specified places as the place of occurrence of the external cause
CPT/HCPCS: 36415; 70450; 71045; 80048; 80053; 80307; 80320; 81001; 82140; 82550; 84484; 85025; 85610; 87040; 87086; 93005; G0378; G0480; J0696; J1650; J7070